=== PATIENT | male | born 1990 | race Caucasian/White ===

== ENCOUNTER 2019-09-03 09:44 | Emergency (ER) | payer BC ==
[~2019-09-03] VITALS: Ht 188 cm; Wt 63.6 kg
[2019-09-03 09:56] VITALS: TEMP 97.3
[2019-09-03 10:51] LABS: BASO % 0.6 % (0.0-2.0); EOS % 0.4 % (0-4.0); GRAN # 3.5 (1.4-6.5); GRAN % 65.9 % (42.2-75.2); HEMATOCRIT 40.3 % (42.0-52.0); HEMOGLOBIN 14.5 g/dl (13.5-18.0); LYMPH # 1.4 (1.2-3.4); MEAN CELL VOLUME 90 fl (80.0-100.0); MEAN CORPUSCULAR HEMOGLOBIN 32 pg (27.0-31.0); MEAN CORPUSCULAR HGB CONC 36 g/dl (33.0-37.0); MEAN PLATELET VOLUME 9.9 fl (7.4-10.4); MONO # 0.4 (0.1-0.6); MONO % 6.9 % (1.7-9.3); PLATELET COUNT 213 K/mm3 (130-400); RED BLOOD COUNT 4.49 M/mm3 (4.20-5.60); REDCELL DISTRIBUTION WIDTH-CV 11.8 % (11.5-14.5)
[2019-09-03 10:55] LABS: INR 1.1 (0.8-3.0); PROTHROMBIN TIME 12.3 SECONDS (9.7-12.8)
[2019-09-03 10:56] LABS: ALANINE AMINOTRANSFERASE 21 U/L (21-72); ALBUMIN 4.9 gm/dL (3.5-5.0); ALKALINE PHOSPHATASE 78 U/L (50-136); ANION GAP 11 mmol/L (7-16); AST,SGOT 25 U/L (15-37); BILIRUBIN,TOTAL 1.3 mg/dL (0.0-1.0); BLOOD UREA NITROGEN 15 mg/dL (9-20); CALCIUM 9.8 mg/dL (8.4-10.2); CARBON DIOXIDE 23 mmol/L (22-30); CHLORIDE 108 mmol/L (98-107); CREATININE, serum 0.82 (0.66-1.25); GLUCOSE 96 mg/dL (74-106); LIPASE 60 U/L (23-300); POTASSIUM 3.9 mmol/L (3.4-5.0); SODIUM 142 mmol/L (137-145); TOTAL PROTEIN 7.8 gm/dL (6.4-8.2)
[2019-09-03 11:02] LABS: D-DIMER < 200.00 ng/mLDDu (200-230)
[2019-09-03 11:08] LABS: TROPONIN-I < 0.012 ng/mL (0.000-0.035)
[2019-09-03 14:11] VITALS: BP 11/82; PULSE 60
== END 2019-09-03 14:11 | disposition home or self-care (01) ==
LOC: COL.ER 09:44
PROVIDERS: Emergency Medicine
DX: R07.89 Other chest pain (principal)
CPT/HCPCS: J7030